=== PATIENT | female | born 1995 ===

== ENCOUNTER 2019-08-31 08:00 | Inpatient (IN) ==
[2019-08-31] MEDS ORDERED: Famotidine 20 MG/2 ML VIAL IVP PRN (08:16)
[2019-08-31] MEDS ORDERED: Azithromycin 500 MG in 0.9 % Sodium Chloride 250 ML IVPB ONE (08:16)
[2019-08-31] MEDS ORDERED: Naloxone 0.4 MG/ML INJ IVP PRN (08:16)
[2019-08-31] MEDS ORDERED: Ondansetron 4 MG/2 ML VIAL IVP PRN (08:16)
[2019-08-31] MEDS ORDERED: Lidocaine 1% 20 ML MDV ID PRN (08:16)
[2019-08-31] MEDS ORDERED: *HR* Nalbuphine 10 MG/ML AMPUL IVP PRN (08:16)
[2019-08-31] MEDS ORDERED: Metoclopramide 10 MG/2 ML VIAL IVP PRN (08:16)
[2019-08-31] MEDS ORDERED: miSOPROStoL 25 MCG TABLET VG PRN (08:18)
[2019-08-31] MEDS ORDERED: Ringers Solution, Lactated 1,000 ML IVC SCH (08:30)
[2019-08-31 08:51] LABS: Basophils % 0.4 %; Eosinophils # 0.1 K/mcL (0.0-0.6); Eosinophils % 0.9 %; Hematocrit 35.4 % (35.3-44.9); Hemoglobin 11.1 g/dL (11.5-15.4); Immature Granulocytes % 0.4 % (0-4); Lymphocytes # 1.7 K/mcL (0.6-4.6); Mean Corpuscular HGB Conc 31.4 g/dL (31.6-35.5); Mean Corpuscular Hemoglobin 23.4 pg (28.0-33.3); Mean Corpuscular Volume 74.5 fL (83.0-100.0); Mean Platelet Volume 12.2 fL (9.4-12.4); Monocytes # 0.7 K/mcL (0.0-1.3); Monocytes % 8.1 %; Neutrophils # 5.7 K/mcL (1.6-8.9); Platelet Count 189 K/mcL (140-400); Red Blood Count 4.75 M/mcL (3.82-4.97); Red Cell Distribution Width 13.4 % (11.5-14.5); Segmented Neutrophils % 69.2 %; White Blood Count 8.2 K/mcL (4.3-11.1)
[2019-08-31] MEDS ORDERED: EPHEDrine 50 MG/ML VIAL IVP PRN (08:54)
[2019-08-31] MEDS ORDERED: Epidural Premix (fent/bupiv) 110 ML EP SCH (09:00)
[2019-08-31 09:28] LABS: Amphetamine Screen,Urine Negative ng/mL (Cutoff=1000); Barbiturate Screen,Urine Negative ng/mL (Cutoff=200); Benzodiazepines Screen,Urine Negative ng/mL (Cutoff=200); Cannabinoid Screen,Urine Negative ng/mL (Cutoff = 50); Cocaine Screen,Urine Negative ng/mL (Cutoff= 300); Opiate Screen,Urine Negative ng/mL (Cutoff=300); Phencyclidine Screen,Urine Negative ng/mL (Cutoff=25)
[2019-08-31] MEDS ORDERED: Oxytocin 20 units/ LR 1000 mL 20 UNIT/1,000 ML BAG IVC SCH (13:30)
[2019-08-31] MEDS ORDERED: *HR* FentaNYL (PF) 100 MCG/2 ML VIAL IVP ONE (19:30)
[2019-08-31] MEDS ORDERED: 0.9 % Sodium Chloride 1,000 ML ONE (22:33)
[2019-08-31] MEDS ORDERED: 0.9 % Sodium Chloride 1,000 ML IVC SCH (22:45)
[2019-09-01] MEDS ORDERED: Lanolin 7 G OINT...G. TP PRN (04:03)
[2019-09-01] MEDS ORDERED: *HR* HYDROcodone/Acet 5/325 mg TABLET PO PRN (04:03)
[2019-09-01] MEDS ORDERED: Oxytocin 20 units/ LR 1000 mL 20 UNIT/1,000 ML BAG IVC SCH (04:03)
[2019-09-01] MEDS ORDERED: Benzocaine/Menthol 56 GM AEROSOL SPRAY TP PRN (04:03)
[2019-09-01] MEDS ORDERED: Oxytocin 20 units/ LR 1000 mL 20 UNIT/1,000 ML BAG IVC ONE (04:03)
[2019-09-01] MEDS: Ibuprofen 600 MG TABLET PO PRN ×3 (04:27→20:36)
[2019-09-01] MEDS: Prenatal Vit/FA 1 EACH TABLET PO SCH (09:26)
[2019-09-01] MEDS: Acetaminophen 325 MG TABLET PO PRN ×2 (09:26→16:50)
[2019-09-02 07:09] LABS: Basophils # 0.1 K/mcL (0.0-0.2); Basophils % 0.6 %; Eosinophils # 0.2 K/mcL (0.0-0.6); Eosinophils % 1.9 %; Hemoglobin 10.2 g/dL (11.5-15.4); Immature Granulocytes % 0.2 % (0-4); Lymphocytes # 2.3 K/mcL (0.6-4.6); Lymphocytes % 29.1 %; Mean Corpuscular HGB Conc 30.9 g/dL (31.6-35.5); Mean Corpuscular Hemoglobin 23.3 pg (28.0-33.3); Mean Corpuscular Volume 75.5 fL (83.0-100.0); Mean Platelet Volume 12.6 fL (9.4-12.4); Monocytes # 0.8 K/mcL (0.0-1.3); Monocytes % 10.2 %; Neutrophils # 4.7 K/mcL (1.6-8.9); Platelet Count 186 K/mcL (140-400); Red Blood Count 4.37 M/mcL (3.82-4.97); Red Cell Distribution Width 13.6 % (11.5-14.5); White Blood Count 8.1 K/mcL (4.3-11.1)
[2019-09-02 08:17] VITALS: BP 101/64
[2019-09-02] MEDS: Prenatal Vit/FA 1 EACH TABLET PO SCH (09:38)
== END 2019-09-02 12:07 | disposition home or self-care (01) | DRG 806 ==
LOC: 1NENULAB 08:02 → 1NENUOBS 09-01 03:38
PROVIDERS: ADMIT Obstetrics & Gynecology; ATTEND Obstetrics & Gynecology